=== PATIENT | female | born 1955 | race Caucasian/White ===

== ENCOUNTER → 2023-07-31 | Day surgery (SDC) | payer OTHER ==
[~2023-07-31] VITALS: Ht 152.4 cm; Wt 86.2 kg
[~2023-07-31] MED LIST: AML5T PO; ASPITAB37 PO; ATOR-507 PO; BUPIVACAINE 0.25% INJ 50ML VIAL ONE; CHOL400T21 PO; CYAN-17 PO; EPINEPHrine HCL 1 MG/1 ML AMP ONE; PANT40TA2 PO; ceFAZolin 2 GM/D5W50ml 50 ML IV ONE
== END | disposition home or self-care (01) ==
LOC: SUR 06:58
PROVIDERS: ATTEND Orthopaedic Surgery
DX: M17.12 Unilateral primary osteoarthritis, left knee (principal); Z53.8 Procedure and treatment not carried out for other reasons; I10 Essential (primary) hypertension; E78.5 Hyperlipidemia, unspecified; K21.9 Gastro-esophageal reflux disease without esophagitis; E66.9 Obesity, unspecified; Z68.37 Body mass index [BMI] 37.0-37.9, adult; Z90.710 Acquired absence of both cervix and uterus
CPT/HCPCS: J0690; J3490; J0171